=== PATIENT | female | born 1985 | race Caucasian/White ===

== ENCOUNTER → 2017-03-04 | Outpatient (CLI) | payer BC | LOC: COL.RAD 12:50 | DX: M25.531 Pain in right wrist (principal) | CPT/HCPCS: J3301; Q9967 ==

== ENCOUNTER 2020-09-08 07:42 | Inpatient (IN) | payer BC ==
[2020-09-08] VITALS (23 sets, daily range): BP systolic 106–151; BP diastolic 58–92; PULSE 64–117; TEMP 98–99
[~2020-09-08] VITALS: Ht 157.5 cm; Wt 91.4 kg
--- NOTE | 2020-09-08 07:50 | NUR ---
Patient ambulates to LR6 with spouse, changed into gown, FHR/TOCO monitors placed and explained. Patient states "I lost my mucus plug around 0330 this morning and then my water broke around 0530, clear fluid and then started to contract". Denies any vaginal bleeding and decreased movement. Plan of care discussed. 0755: SVE per Kings HOOKER 3-4//-2 and clear fluid noted. 0815: IV started in left upper arm per Kings RN, blood obatined and to lab, LR infusing. Patient requests epidural and Tia Lara RETAIL ASSET PROTECTION SPECIALIST notified. Assessment completed/consents gone over and signed/pospartum packet given.
[2020-09-08] MEDS ORDERED: PRENATAL TABLET PO (08:00)
[2020-09-08 08:32] LABS: BASO % 0.2 % (0.0-2.0); EOS # 0.1 (0.0-0.7); EOS % 0.3 % (0-4.0); GRAN # 11.5 (1.4-6.5); GRAN % 76.9 % (42.2-75.2); HEMOGLOBIN 10.3 g/dl (12.5-16.0); LYMPH # 2.3 (1.2-3.4); LYMPH % 15.3 % (20.0-51.0); MEAN CELL VOLUME 82 fl (80.0-100.0); MEAN CORPUSCULAR HEMOGLOBIN 26 pg (27.0-31.0); MEAN CORPUSCULAR HGB CONC 32 g/dl (33.0-37.0); MEAN PLATELET VOLUME 10.8 fl (7.4-10.4); MONO % 6.8 % (1.7-9.3); PLATELET COUNT 288 K/mm3 (130-400); RED BLOOD COUNT 3.94 M/mm3 (4.10-5.30); REDCELL DISTRIBUTION WIDTH-CV 14.1 % (11.5-14.5)
[2020-09-08 08:36] LABS: HEMATOCRIT 32.4 % (37.0-47.0)
--- NOTE | 2020-09-08 08:40 | NUR ---
Patient sitting on edge of bed and Nichelle Lara CRNA at bedside for epidural placement. Difficulty tracing FHR due to maternal position. 0849: Single shot and patient tolerates well. 0852: Test dose given and patient tolerates well. 0855: Patient repositioned and safety precautions/plan of care discussed. 0925: Walton catheter placed and patient tolerates well. Patient states she can still feel down there. SVE 6-7//-2 and patient right lateral with left leg resting in stirrup. 1000: Patent feeling alot of pressure and uncomfortable with each contraction. Epidrural bolus given. SVE-/-1 1008: Dr. Marinelli at bedside assessing patient and FHR strip. SVE per physician /-1 with blood show noted. Lynne [place] SUPERINTENDENT notified that patient is requesting more relief. 1030: Patient sitting up and epidural catheter removed. 1032: Intrathecal dose given at this time per Nichelle Lara CRNA and patient tolerates well. 1045: Dr. Marinelli at bedside and SVE- -/- and no new orders given. Patient comfortable at this time.
--- NOTE | 2020-09-08 11:50 | NUR ---
Patient uncomfortable with contractions. Nichelle Lara CRNA notified and at bedside talking with patient. Patient agrees with intrathecal dose. 1155: SVE 9-10/100/0 Patient sat up and Nichelle Lara CRNA at beside. 1205: Intrathecal dose and patient tolerates well. 1208: Patient repositioned and feeling relief. 1215: SVE-10/100/+1 and patient practice pushing. 1220: Walton catheter removed and patient continues to push with contractions. 1223: Dr. Marinelli called for delivery. 1232: Dr. Marinelli at bedside and patient pushes with physician. Patient prepped for vaginal delivery and continues to push with Dr. Marinelli. 1237: Spontaneous vaginal delivery of viable male-head followed by body. Infant bulb syringed and to patient jimmy, Tami HOOKER assumes care of infant. Cord clamped by physician and cut by FOB. Cord blood obtained. 1240: Spontaneous delivery of placenta and pitocin bolus started at 333mU/hr per protocol. Fundal massage done/firm/bleeding WNL. Dr. Marinelli repairs laceration. Pericare done/patient repositioned/ice pack to perineum. Plan of care discussed.
--- NOTE | 2020-09-08 14:20 | NUR ---
Patient ambulates to bathroom with standby assist. Voids, pericare done. New gown/pad/underwear on. Patient ambulates to new room and oriented to . Whiteboard gone over and plan of care discussed.
[2020-09-09 00:30] VITALS: BP 134/84; PULSE 84; TEMP 98.2
[2020-09-09 07:10] VITALS: BP 133/83; PULSE 107; TEMP 98.7
[2020-09-09] MEDS ORDERED: IBU600 MG PO (08:42)
== END 2020-09-09 15:45 | disposition home or self-care (01) | DRG 807 ==
LOC: LDRO 07:42 → LDR 08:01 → OB 14:36
PROVIDERS: ADMIT Obstetrics & Gynecology
PROC: 10E0XZZ Delivery of Products of Conception, External Approach (ICD-10-PCS; principal; 2020-09-08)
PROC: 0HQ9XZZ Repair Perineum Skin, External Approach (ICD-10-PCS; 2020-09-08)
DX: O69.81X0 Labor and delivery complicated by cord around neck, without compression, not applicable or unspecified (principal); Z37.0 Single live birth; O70.0 First degree perineal laceration during delivery; Z3A.39 39 weeks gestation of pregnancy
CPT/HCPCS: J2590; J2795; J3010; J7120

== ENCOUNTER 2021-09-21 07:34 | Inpatient (IN) | payer BC ==
[~2021-09-21] VITALS: Ht 157.5 cm; Wt 85.5 kg
[2021-09-21] VITALS (30 sets, daily range): BP systolic 114–158; BP diastolic 64–96; PULSE 74–117; TEMP 97.8–98.2
[~2021-09-21 07:34] MED LIST: IBU600 MG PO; PRENATAL TABLET PO
[2021-09-21 08:25] LABS: BASO # 0.1 K/mm3 (0.0-0.2); BASO % 0.4 % (0.0-2.0); EOS % 0.3 % (0.0-4.0); GRAN # 10.5 K/mm3 (1.4-6.5); GRAN % 75.4 % (42.2-75.2); LYMPH # 2.5 K/mm3 (1.2-3.4); LYMPH % 17.7 % (20.0-51.0); MEAN CELL VOLUME 74 fl (80.0-100.0); MEAN CORPUSCULAR HGB CONC 32 g/dl (33.0-37.0); MEAN PLATELET VOLUME 10.6 fl (7.4-10.4); MONO # 0.8 K/mm3 (0.1-0.6); MONO % 5.6 % (1.7-9.3); PLATELET COUNT 246 K/mm3 (130-400); RED BLOOD COUNT 3.69 M/mm3 (4.10-5.30)
[2021-09-21 08:27] LABS: HEMATOCRIT 27.3 % (37.0-47.0); HEMOGLOBIN 8.6 g/dl (12.5-16.0); MEAN CORPUSCULAR HEMOGLOBIN 23 pg (27-31)
--- NOTE | 2021-09-21 08:55 | NUR ---
4547 PATIENT HERE FOR COMPLAINTS THAT CONTRACTIONS ARE GETTING MORE INTENSE AND CLOSER TOGETHER. EFM ON FHT 130 BABY VERY ACTIVE. CONTRACTIONS [address] FERRARI CALLED AND UPDATED AND ORDERS TO ADMIT FOR LABOR. AND MOTHER AT BEDSIDE.
--- NOTE | 2021-09-21 08:59 | NUR ---
0830 PATIENT IS READY FOR EPIDURAL Ena NOVA STEAMFITTER SUPERVISOR CALLED AT THIS TIME
--- NOTE | 2021-09-21 09:01 | NUR ---
0835 PATIENT SITS UP FOR EPIDURAL PLACEMENT. Ena NOVA APPLICATIONS PROGRAMMER AT BEDSIDE. PATIENT TOLERATES WELL. SEE Ena NOVA APPLICATIONS PROGRAMMER NOTES FOR QUESTIONS.
--- NOTE | 2021-09-21 12:02 | NUR ---
1150 STATES SHE IS LEAKING SOMETHING. THIS NURSE TO BEDSIDE. LARGE AMOUNT OF FLUID NOTED WITH BLOODY SHOW. SVE /0. DR FERRARI CALLED AND UPDATED. DR FERRARI SCRUBBED IN SURGERY AND WILL BE OVER SOON.
--- NOTE | 2021-09-21 13:28 | NUR ---
[address] FERRARI AT BEDSIDE. PATIETN WILL PUSH WITH NEXT CONTRACTION. 1258 GIRL BORN VIA BY DR FERRARI. CORD CLAMPED AND CUT BY DR AND . BABY SKIN TO SKIN PER PATIENT REQUEST. STRONG CRY NOTED. 1300 PLACENTA DELIVERED AND PITOCIN STARTED PER PROTOCOL AT 333/HR. FUNDUS FIRM AND BLEEDING WNL. TOLERATES WELL. NO REPAIR NEEDED. BABY REMAINS SKIN TO SKIN.
[2021-09-22 02:07] VITALS: BP 136/89; PULSE 87; TEMP 98.1
[2021-09-22 08:11] VITALS: BP 137/91; PULSE 90; TEMP 98.2
[2021-09-22] MEDS ORDERED: IBU600 MG PO (08:45)
--- NOTE | 2021-09-22 09:02 | NUR ---
Initial visit; Parents thanked Skip Tracer for offering congratulations and God's blessings for the of their daughter. Skip Tracer thanked family for choosing our hospital.
[2021-09-22 13:30] VITALS: BP 134/76; PULSE 90; TEMP 98.4
--- NOTE | 2021-09-22 16:15 | NUR ---
ALL DC PAPERWORK REVIEWED AND UNDERSTOOD. BABY SECURED SAFELY IN CARSEAT. PT AND FOB DENY FURTHER QUESTIONS OR CONCERNS. AMBULATORY FROM UNIT IN STABLE CONDITION AT THIS TIME.
== END 2021-09-22 16:15 | disposition home or self-care (01) | DRG 807 ==
LOC: LDRO 07:34 → LDR 07:54 → OB 16:04
PROVIDERS: ADMIT Obstetrics & Gynecology
PROC: 10E0XZZ Delivery of Products of Conception, External Approach (ICD-10-PCS; principal; 2021-09-21)
DX: O99.354 Diseases of the nervous system complicating childbirth (principal); Z37.0 Single live birth; G43.909 Migraine, unspecified, not intractable, without status migrainosus; Z3A.39 39 weeks gestation of pregnancy
CPT/HCPCS: J2590; J2795; J7120